=== PATIENT | male | born 1925 | race Caucasian/White ===

== ENCOUNTER 2017-02-24 09:39 | Emergency (ER) | payer OTHER ==
[~2017-02-24] VITALS: Ht 190.5 cm; Wt 80.0 kg
[~2017-02-24 09:39] MED LIST: APIX1TAB PO; CHOL100010 PO; CYAN10004 PO; FOLI1TAB7 PO; HYT1 PO; KFL500 PO; MISCCAP3 PO; PRS5 PO
[2017-02-24 09:41] VITALS: TEMP 36.4; Ht 190.5 cm; Wt 80.0 kg
[2017-02-24] MEDS ORDERED: CHOL1TAB53 PO (10:13)
[2017-02-24 11:23] LABS: BASO % 0.3 %; BASO ABS # 0.02 K/uL (0-0.2); COMPLETE YES; EOS % 1.6 %; HEMATOCRIT 44.6 % (42-52); IG% 0.2 %; LYMPH ABS # 1.86 K/uL (1.2-3.4); MEAN CELL VOLUME 96.1 fL (80-100); MEAN CORPUSCULAR HGB CONC 32.3 g/dl (32-36); MEAN PLATELET VOLUME 11.9 fL (7.4-10.4); MONO % 7.3 %; NEUT % 60.6 %; PLATELET COUNT 178 K/uL (130-400); RED BLOOD COUNT 4.64 M/uL (4.7-6.1)
[2017-02-24 11:41] LABS: BUN/CREATININE RATIO 10.7 (10-20); CALCIUM 9.1 mg/dl (8.5-10.1); CREATININE 1.5 mg/dl (0.60-1.40); POTASSIUM 4.2 mmol/L (3.5-5.1)
--- NOTE | 2017-02-24 12:02 | DIAGNOSTIC IMAGING REPORT ---
LEFT RIBS UNILATERAL WITH PA CHEST CLINICAL HISTORY: Left rib pain. Fall. COMPARISON STUDY: Chest and right rib series 06/15/2016. FINDINGS: Old, healed left lower rib fractures. No acute rib fractures. No pneumothorax. The heart is mildly enlarged. Left-sided single lead pacemaker. Mild interstitial thickening at left lung base. IMPRESSION: Old, healed left lower rib fractures. No acute rib fractures. Stable mild cardiomegaly. Electronically signed by: Daniel Rey M.D. 02/24/2017 12:00 PM Dictated Date/Time: 02/24/2017 11:57 AM
[2017-02-24] MEDS ORDERED: OXYC1TAB3 PO (13:00)
[2017-02-24] MEDS ORDERED: OPTIRAY 320 IV PRN (13:45)
[2017-02-24] MEDS ORDERED: SODIUM CHLORIDE 0.9% 250ML 250 ML IV STA (14:19)
--- NOTE | 2017-02-24 14:29 | DIAGNOSTIC IMAGING REPORT ---
ABDOMEN AND PELVIS CT WITH IV CONTRAST CT DOSE: 356.90 mGy.cm HISTORY: Left flank pain. Fall. eval for renal injury TECHNIQUE: Multiaxial CT images of the abdomen and pelvis were performed following the use of intravenous contrast. COMPARISON STUDY: Abdomen and pelvis CT 08/21/2016. FINDINGS: Mild bibasilar interstitial thickening. The heart remains enlarged. Pacemaker wires are noted. No pneumoperitoneum. No pneumatosis. A right total hip arthroplasty and left femoral neck pin is noted. No change in the old, healed left-sided rib fractures. No acute fractures identified. Motion artifact resulting in suboptimal evaluation. An 11 mm enhancing lesion within the right hepatic dome. This is incompletely characterized on this study but may represent a flash filling hemangioma. The visualized gallbladder, spleen, adrenal glands, and pancreas are unremarkable. A few subcentimeter bilateral renal hypodense lesions. These are too small to characterize. No hydronephrosis. No retroperitoneal lymphadenopathy. Left flank subcutaneous edema. Moderate to severe calcified plaque within the abdominal aorta. Bladder is not well evaluated due to the metallic artifact. However, there is no significant bladder wall thickening. The prostate gland is mildly enlarged. Mildly distended gas-filled loops of large and small bowel. This favors an ileus. No evidence for bowel obstruction. No bowel wall thickening. IMPRESSION: 1. Motion artifact. However, no definite acute injury within the abdomen or pelvis. 2. Old, healed left-sided rib fractures. 3. Mildly distended gas-filled loops of large and small bowel. This likely represents an ileus. No evidence for bowel obstruction. 4. Additional findings as described above. Electronically signed by: Daniel Rey M.D. 02/24/2017 2:27 PM Dictated Date/Time: 02/24/2017 2:18 PM
[2017-02-24 15:19] VITALS: BP 181/100; PULSE 60; O2SAT 100
--- NOTE | 2017-02-24 16:50 | EMERGENCY ROOM VISIT NOTE ---
History Report prepared by Kassidy: Marissa Mccarthy Under the Supervision of: Dr. Jose Sams M.D. First contact with patient: 10:30 Chief Complaint: FALL Stated Complaint: FELL,POSSIBLE BROKEN RIBS History of Present Illness The patient is a 89 year old male who presents to the Emergency Room with complaints of persistent left rib pain starting 2 days ago. The patient was in the kitchen when he lost his balance and fell and landed on his left side. He has a sharp pain in his left side which worsens with breathing. He denies any back pain, hip pain, weakness to his legs, SOB, abdominal pain, LOC, or dizziness. He denies any injury to his head or neck. Source of History: patient Onset: 2 days ago Position: other (left rib) Quality: sharp Timing: other (persistent) Modifying Factors (Worsening): breathing Associated Symptoms: No LOC, No SOB, No abdominal pain, No back pain, No headache, No neck pain, No weakness Note: Pt denies hip pain, dizziness. Review of Systems See HPI for pertinent positives & negatives. A total of 10 systems reviewed and were otherwise negative. Past Medical & Surgical Medical Problems: (1) A-fib (2) Anemia (3) Bradycardia (4) Hypertensive urgency (5) Pacemaker (6) Rectal bleeding (7) Urinary tract infection (8) Urinary tract infection Family History Noncontributory secondary to age. Social History Smoking Status: Never Smoker Alcohol Use: none Marital Status: Housing Status: lives alone Occupation Status: retired Current/Historical Medications Scheduled Apixaban (Eliquis), 2.5 MG PO BID Cholecalciferol (D 1000), 1,000 UNIT PO SOMETIMES Cyanocobalamin (Vitamin B-12 1000 Mcg), 1,000 MCG PO DAILY Folic Acid (Folvite), 1 MG PO DAILY Misc Natural Products (Pumpkin Seed Oil), 1 TABS PO DAILY Scheduled PRN Oxycodone Ir (Roxicodone Ir), 2.5 MG PO Q4H PRN for Pain Allergies Coded Allergies: No Known Allergies (Verified , 08/20/16) Physical Exam Vital Signs Date Time Temp Pulse Resp B/P Pulse Ox O2 Delivery O2 Flow Rate FiO2 02/24/17 15:19 60 18 181/100 100 Room Air 02/24/17 13:19 61 18 186/95 99 Room Air 02/24/17 12:14 61 18 176/82 97 Room Air 02/24/17 11:20 60 190/90 99 Room Air 02/24/17 10:18 192/91 02/24/17 09:41 36.4 63 18 210/95 100 Room Air Physical Exam Constitutional: Vital signs reviewed. Eyes: Pupils are equal round reactive to light. Conjunctiva are noninjected. ENT: Pharynx is clear without erythema or exudate. Mucous membranes are moist. Neck supple without meningeal signs. No midline tenderness to the cervical spine. Respiratory: Clear to auscultation bilaterally. Breath sounds are equal bilaterally. Cardiovascular: Regular rate and rhythm. No rubs or gallops. GI: Soft, nondistended and nontender. Bowel sounds are present. Musculoskeletal: Tenderness over the left lower ribs in the mid axillary line without crepitus or flail segment. No tenderness to the hip with full ROM of both joints. Integumentary: No cyanosis. Neurological: The patient is awake and alert. No focal deficits. Psychiatric: Normal affect. Medical Decision & Procedures ER Provider Diagnostic Interpretation: X-ray results as stated below per interpretation by me and the radiologist. Radiology results as stated below per my review and the radiologist's interpretation: LEFT RIBS UNILATERAL WITH PA CHEST CLINICAL HISTORY: Left rib pain. Fall. COMPARISON STUDY: Chest and right rib series 06/15/2016. FINDINGS: Old, healed left lower rib fractures. No acute rib fractures. No pneumothorax. The heart is mildly enlarged. Left-sided single lead pacemaker. Mild interstitial thickening at left lung base. IMPRESSION: Old, healed left lower rib fractures. No acute rib fractures. Stable mild cardiomegaly. Electronically signed by: Daniel Rey M.D. 02/24/2017 12:00 PM Dictated Date/Time: 02/24/2017 11:57 AM ABDOMEN AND PELVIS CT WITH IV CONTRAST CT DOSE: 356.90 mGy.cm HISTORY: Left flank pain. Fall. eval for renal injury TECHNIQUE: Multiaxial CT images of the abdomen and pelvis were performed following the use of intravenous contrast. COMPARISON STUDY: Abdomen and pelvis CT 08/21/2016. FINDINGS: Mild bibasilar interstitial thickening. The heart remains enlarged. Pacemaker wires are noted. No pneumoperitoneum. No pneumatosis. A right total hip arthroplasty and left femoral neck pin is noted. No change in the old, healed left-sided rib fractures. No acute fractures identified. Motion artifact resulting in suboptimal evaluation. An 11 mm enhancing lesion within the right hepatic dome. This is incompletely characterized on this study but may represent a flash filling hemangioma. The visualized gallbladder, spleen, adrenal glands, and pancreas are unremarkable. A few subcentimeter bilateral renal hypodense lesions. These are too small to characterize. No hydronephrosis. No retroperitoneal lymphadenopathy. Left flank subcutaneous edema. Moderate to severe calcified plaque within the abdominal aorta. Bladder is not well evaluated due to the metallic artifact. However, there is no significant bladder wall thickening. The prostate gland is mildly enlarged. Mildly distended gas-filled loops of large and small bowel. This favors an ileus. No evidence for bowel obstruction. No bowel wall thickening. IMPRESSION: 1. Motion artifact. However, no definite acute injury within the abdomen or pelvis. 2. Old, healed left-sided rib fractures. 3. Mildly distended gas-filled loops of large and small bowel. This likely represents an ileus. No evidence for bowel obstruction. 4. Additional findings as described above. Electronically signed by: Daniel Rey M.D. 02/24/2017 2:27 PM Dictated Date/Time: 02/24/2017 2:18 PM Laboratory Results 02/24/17 11:05 Red Blood Count 4.64, Mean Corpuscular Volume 96.1, Mean Corpuscular Hemoglobin 31.0, Mean Corpuscular Hemoglobin Concent 32.3, Mean Platelet Volume 11.9, Neutrophils (%) (Auto) 60.6, Lymphocytes (%) (Auto) 30.0, Monocytes (%) (Auto) 7.3, Eosinophils (%) (Auto) 1.6, Basophils (%) (Auto) 0.3, Neutrophils # (Auto) 3.76, Lymphocytes # (Auto) 1.86, Monocytes # (Auto) 0.45, Eosinophils # (Auto) 0.10, Basophils # (Auto) 0.02 02/24/17 11:05 Test 02/24/17 11:05 02/24/17 11:12 White Blood Count 6.20 K/uL (4.8-10.8) Red Blood Count 4.64 M/uL (4.7-6.1) Hemoglobin 14.4 g/dL (14.0-18.0) Hematocrit 44.6 % (42-52) Mean Corpuscular Volume 96.1 fL (80-100) Mean Corpuscular Hemoglobin 31.0 pg (25-34) Mean Corpuscular Hemoglobin Concent 32.3 g/dl (32-36) Platelet Count 178 K/uL (130-400) Mean Platelet Volume 11.9 fL (7.4-10.4) Neutrophils (%) (Auto) 60.6 % Lymphocytes (%) (Auto) 30.0 % Monocytes (%) (Auto) 7.3 % Eosinophils (%) (Auto) 1.6 % Basophils (%) (Auto) 0.3 % Neutrophils # (Auto) 3.76 K/uL (1.4-6.5) Lymphocytes # (Auto) 1.86 K/uL (1.2-3.4) Monocytes # (Auto) 0.45 K/uL (0.11-0.59) Eosinophils # (Auto) 0.10 K/uL (0-0.5) Basophils # (Auto) 0.02 K/uL (0-0.2) RDW Standard Deviation 51.2 fL (36.4-46.3) RDW Coefficient of Variation 14.6 % (11.5-14.5) Immature Granulocyte % (Auto) 0.2 % Immature Granulocyte # (Auto) 0.01 K/uL (0.00-0.02) Anion Gap 5.0 mmol/L (3-11) Est Creatinine Clear Calc Drug Dose 37.8 ml/min Estimated GFR () 47.2 Estimated GFR (Non- 40.7 BUN/Creatinine Ratio 10.7 (10-20) Calcium Level 9.1 mg/dl (8.5-10.1) Bedside Troponin I 0.010 ng/ml (0-0.045) Laboratory results as reviewed by me. Medications Administered Medications (Trade) Dose Ordered Sig/Vanessa Route Start Time Stop Time Status Last Admin Dose Admin Sodium Chloride (Nss 250ml) 250 ml @ 999 mls/hr Q16M STAT IV 02/24/17 14:19 02/24/17 14:34 DC 02/24/17 14:19 999 MLS/HR ECG Indication: other (fall) Rate (beats per minute): 62 Rhythm: other (ventricular paced rhythm) Findings: PVC, other (QRS 170 ms) ED Course 1032: The patient was evaluated in room C9. A complete history and physical exam was performed. 1255: I reevaluated the patient. He is resting comfortably. I discussed with him the test results and the need to follow up with his PCP. I discussed the precautions regarding his pain medications. He verbalized understanding and agreement. He was discharged home. 1304: The case monitor has talked to the patient and determined that he has an appointment tomorrow to see his PCP. 1327: The patient has mentioned to the nurse that he has had some hematuria recently. He is on eliquis. He will be going for CT scan. 1419: NSS 250 ml @ 999 mls/hr IV. 1505: I reevaluated the patient. He is resting comfortably. He is not able to produce a urine sample. He denies any dysuria and would like to go home. He will follow up with his PCP tomorrow. I told him to make sure he checks his urine tomorrow. He verbalized understanding and agreement. He will be discharged home. Medical Decision This is an 89-year-old male who presents with rib pain after a fall. Differential diagnosis includes rib fracture, contusion, pneumothorax, pleural effusion, visceral injury. I did perform a limited focused review of portions of the patient's old chart on the electronic medical record. The patient was evaluated in June 2016 and diagnosed with multiple right sided rib fractures after a fall. I did evaluate the patient as noted above. The patient presents after falling 2 days ago. He states he lost his balance and hurt his ribs on the left side. He has reproducible tenderness over the left lower ribs on palpation. IV access was established. I did order and personally review the patient's 12- lead EKG and chest rib x-rays as described above. There is no evidence of pneumothorax. Old fractures are noted but no acute fractures. I did order and review the patient's blood work as noted in the electronic medical record. He is not anemic. I did discuss the test results with the patient. He was advised follow up with his doctor and says he appointment tomorrow. He will have his blood pressure rechecked at that time. He was given a prescription for OxyIR and given precautions regarding this medication. When the patient was being discharged the patient noted to the nurse that he has noticed some blood in his urine. I therefore reassessed him and recommended further evaluation given he is on a blood thinner. I did order a CT of the abdomen and pelvis. I did review the images myself as well as the radiology report as described above. There was no evidence of visceral injury. The patient was unable to give us a urine sample and so he preferred to go home. He states that he will give a urine sample to his doctor tomorrow. He was therefore discharged and given return instructions as outlined below. [facility] Drug Monitoring Program Search Results: patient reviewed within database Drug Monitoring Findings: No matching patients Impression Primary Impression: Multiple fractures of ribs of left side Additional Impressions: Elevated blood pressure reading Hematuria Anticoagulated Scribe Attestation The scribe's documentation has been prepared under my direct and personally reviewed by me in its entirety. I confirm that the note above accurately reflects all work, treatment, procedures, and medical decision making performed by me. Departure Information Dispostion Home / Self-Care Prescriptions Oxycodone Ir (Roxicodone Ir) 5 Mg Tab 2.5 MG PO Q4H Y for Pain, #15 TAB Prov: Jose Sams M.D. 02/24/17 Referrals Danii Dick PA-C (PCP) Forms HOME CARE DOCUMENTATION FORM, IMPORTANT VISIT INFORMATION Patient Instructions ED Contusion Vs Minor Fx Rib, My [facility] Additional Instructions You have been examined and treated today on an emergency basis only. This is not a substitute for, or an effort to provide, complete comprehensive medical care. It is impossible to recognize and treat all injuries or illnesses in a single emergency department visit. It is therefore important that you follow up closely with your physician tomorrow per your appointment. Have him check your urine. Return for worsening symptoms or if you develop fever, vomiting, difficulty breathing, abdominal pain or any other concerning symptoms. Problem Qualifiers Primary Impression: Multiple fractures of ribs of left side Encounter type: initial encounter Fracture type: closed Qualified Codes: S22.42XA - Multiple fractures of ribs, left side, initial encounter for closed fracture
== END 2017-02-24 15:19 | disposition home or self-care (01) ==
LOC: C.EDB 09:40 → C.EDC 15:19
DX: S22.42XD Multiple fractures of ribs, left side, subsequent encounter for fracture with routine healing (principal); W19.XXXA Unspecified fall, initial encounter; Y92.010 Kitchen of single-family (private) house as the place of occurrence of the external cause; R31.9 Hematuria, unspecified; Z79.01 Long term (current) use of anticoagulants; R03.0 Elevated blood-pressure reading, without diagnosis of hypertension; I48.91 Unspecified atrial fibrillation; D64.9 Anemia, unspecified; Z95.0 Presence of cardiac pacemaker; Z79.899 Other long term (current) drug therapy

== ENCOUNTER 2017-06-01 09:15 | Emergency (ER) | payer OTHER ==
[~2017-06-01] VITALS: Ht 188 cm; Wt 85.0 kg
[~2017-06-01 09:15] MED LIST changes: -CHOL100010 PO; +CHOL1TAB53 PO; -HYT1 PO; -KFL500 PO; +OXYC1TAB3 PO; -PRS5 PO
[2017-06-01] MEDS ORDERED: SODIUM CHLORIDE 0.9% 1000ML 1,000 ML IV STA (09:28)
[2017-06-01] MEDS ORDERED: FENTANYL CITRATE INJ 50 MCG/1 ML 2 ML VIAL IV STA ×3 (09:28→12:33)
[2017-06-01] MEDS ORDERED: ONDANSETRON INJ 2 MG/ML 2 ML VIAL IV STA (09:28)
--- NOTE | 2017-06-01 09:33 | EMERGENCY ROOM VISIT NOTE ---
History Report prepared by Kassidy: Kady Stacy Under the Supervision of: Dr. Sharon Salinas M.D. First contact with patient: 09:18 Stated Complaint: LETHARGIC/FALL/NECK AND BACK PAIN History of Present Illness The patient is an 89 year old male who presents to the Emergency Room with complaints of a sudden fall that occurred prior to arrival. Per EMS, the patient states that he fell one hour prior to their arrival. EMS reports that the patient fell down three hard wooden steps. EMS notes that the patient is complaining of lower back pain and neck pain. EMS states that the patient has been holding his head c/o pain. The history is limited due to patient's hearing. Source of History: patient, EMS History Limited By: other (hearing) Onset: prior to arrival Position: other (global) Quality: other (fall) Timing: other (sudden) Associated Symptoms: + neck pain, + back pain Review of Systems The history and ROS are limited due to the patient's hearing. Past Medical & Surgical Medical Problems: (1) A-fib (2) Anemia (3) Bradycardia (4) Hypertensive urgency (5) Pacemaker (6) Rectal bleeding (7) Urinary tract infection (8) Urinary tract infection Family History Hypertension Social History Smoking Status: Never Smoker Alcohol Use: none Marital Status: Housing Status: lives alone Occupation Status: retired Current/Historical Medications Scheduled Apixaban (Eliquis), 2.5 MG PO BID Cyanocobalamin (Vitamin B-12 1000 Mcg), 1,000 MCG PO DAILY Folic Acid (Folvite), 1 MG PO DAILY Gabapentin (Gabapentin), 600 MG PO HS Tamsulosin HCl (Tamsulosin HCl), 0.4 MG PO DAILY Allergies Coded Allergies: No Known Allergies (Verified , 06/01/17) Physical Exam Vital Signs Date Time Temp Pulse Resp B/P (MAP) Pulse Ox O2 Delivery O2 Flow Rate FiO2 06/01/17 11:23 62 18 138/70 93 Room Air 06/01/17 10:50 61 18 123/62 93 Room Air 06/01/17 10:14 64 06/01/17 09:36 75 18 150/97 94 Room Air Physical Exam Vital signs reviewed. General: Elderly. Kyphotic. Well-appearing , in no significant distress. Boarded and collared. HEENT: Small contusion over let forehead.No scleral icterus, PERRLA, neck supple. Distal cervical spine tenderness, questionable mild crepitus. Cardiovascular: Regular rate and rhythm, no extra sounds. Pulmonary: Clear to auscultation bilaterally, normal work of breathing. Abdomen: Soft, nontender, nondistended, positive bowel sounds. Musculoskeletal: Cervical spine is tender distally. Proximal thoracic tenderness to palpation. Small abrasion to the left upper back over a keratosis. Lumbar spine palpated, nontender, no step-off or deformity appreciated. L posterior ribs tender to palpation Neurologic: Patient awake alert and oriented x 3, full strength in all 4 extremities. Skin: Warm, dry, no rash. No significant abrasions/laceration. Medical Decision & Procedures ER Provider Diagnostic Interpretation: Radiology results as stated below per my review and radiologist interpretation: THORACIC SPINE WITHOUT CLINICAL HISTORY: Fall. Back pain. COMPARISON STUDY: Chest CT March 23, 2016. FINDINGS: A small left pneumothorax and small left pneumothorax and airspace opacity within the left lung are better depicted on the chest CT. There is soft tissue gas within the paraspinal musculature. There are fractures of the posterior left eighth through 12th rib. Several these fractures are markedly displaced and comminuted. There is an acute nondisplaced fracture of the left transverse process of T9. There are displaced, comminuted fractures through the left transverse processes of T10, T11, T12 and L1. These fractures are markedly displaced. There is an associated paravertebral hematoma. Extensive anterior osteophytosis of the thoracic spine is present. There is apparent increased attenuation within the posterior aspect of the canal of the thoracic spine. IMPRESSION: 1. Acute comminuted, markedly displaced fractures of the left transverse processes of T10, T11, T12 and L1 and a nondisplaced acute fracture of the left transverse process of T9. 2. Apparent increased attenuation within the posterior aspect of the thoracic canal. While this could be artifactual, an intracanalicular hematoma could have this imaging appearance. 3. Left posterior eighth through 12th rib fractures, as described above. 4. Small left pneumothorax and left hemothorax, better depicted on the chest CT. Electronically signed by: Demetrio Duron M.D. 06/01/2017 12:00 PM Dictated Date/Time: 06/01/2017 11:[address] OF THE HEAD WITHOUT CONTRAST CLINICAL HISTORY: Fall. Closed head injury. COMPARISON STUDY: Head CT November 09, 2014. TECHNIQUE: Helical axial images of the head were obtained without IV contrast. Automated exposure control was utilized for the study. A dose lowering technique was utilized adhering to the principles of ALARA. FINDINGS: No acute intracranial hemorrhage, midline shift or mass effect is present. Ventricular system is stable. The basilar cisterns are patent. There are no extra-axial collections. White matter hypodensities suggest small vessel disease. No calvarial fracture is identified. Mild mucosal thickening and tiny sphenoid sinus air-fluid level is noted. Fluid is low attenuation. IMPRESSION: 1. No acute intracranial findings. 2. No calvarial fracture. Electronically signed by: Demetrio Duron M.D. 06/01/2017 11:16 AM Dictated Date/Time: 06/01/2017 11:[address] OF THE CERVICAL SPINE WITHOUT CONTRAST CLINICAL HISTORY: Neck pain following fall. COMPARISON STUDY: No previous studies for comparison. TECHNIQUE: Helical axial images of the cervical spine were obtained without IV contrast. Sagittal and coronal reconstructions were viewed. A dose lowering technique was utilized adhering to the principles of ALARA. FINDINGS: The craniocervical junction is intact. There is extensive anterior osteophytosis of the cervical spine. There is moderate multilevel degenerative disc disease and severe facet arthrosis. There is an acute fracture through the anterior superior aspect of the C5 vertebral body which extends through an anterior osteophyte and the superior endplate. There are acute displaced fractures of the spinous processes of C5 and C6 as well as well as a horizontal acute fracture through the superior aspect of the C7 vertebral body. There is slight widening of the C5-C6 interspinous distance. Soft tissue gas within the lower paravertebral soft tissues is noted. This extends from the chest. A left pneumothorax better depicted on the chest CT. Was made of apparent increased attenuation within the posterior aspect of the cervical canal. This could be artifactual. IMPRESSION: 1. Multiple acute cervical spine fractures, including a fracture through the anterior superior endplate of C5, displaced fractures of the spinous processes of C5 and C6 and a horizontal fracture through the superior aspect of the C7 vertebral body. Slight widening of the C5-C6 interspinous distance. Overall, the findings suggest unstable cervical spine fractures. Discussed with Dr. Salinas time of dictation. 2. Increased attenuation within the posterior aspect of the cervical canal. This may be artifactual however an intracanalicular hematoma could appear similar. Electronically signed by: Demetrio Duron M.D. 06/01/2017 11:38 AM Dictated Date/Time: 06/01/2017 11:[address] OF THE CHEST WITHOUT IV CONTRAST CLINICAL HISTORY: Trauma. COMPARISON STUDY: Chest CT March 23, 2006. CT DOSE: 1548.17 mGy.cm TECHNIQUE: Axial images of the chest were obtained without IV contrast. Images were reviewed in the axial, sagittal, and coronal planes. IV contrast was not administered for this examination. A dose lowering technique was utilized adhering to the principles of ALARA. FINDINGS: A left subclavian pacer is in place. There is moderate cardiomegaly. There is no pericardial effusion. A small left pneumothorax is present. Moderate left lung airspace opacity is present. There is a small left pneumothorax. There is an acute minimally displaced fracture of the posterior left eighth rib. There are comminuted, displaced fractures of the posterior left ninth, 10th, 11th and 12th ribs. There is an acute nondisplaced fracture of the left transverse process of T9 with displaced fractures of the left transverse processes of T10, T11, T12 and L1. Fractures are markedly comminuted and displaced. There is an adjacent paravertebral hematoma which extends into the posterior mediastinum. The aorta is suboptimally assessed on this exam but grossly unremarkable. Soft tissue gas is present. IMPRESSION: 1. Small left pneumothorax. Acute fractures of the left eighth through 12th ribs. Several these fractures are comminuted and markedly displaced. Adjacent soft tissue gas. Small left hemothorax. 2. Groundglass opacities within the left lung which could reflect contusion, atelectasis or airspace disease. 3. Markedly displaced, comminuted fractures of the left transverse processes of T10, T11, T12 and L1 with a nondisplaced fracture of the left transverse process of T9. Associated hematoma involving the paraspinal musculature. Hemorrhage extends into the adjacent mediastinum. Suboptimal evaluation of the aorta on this unenhanced exam but no definite evidence for aortic injury. 4. Apparent increased attenuation within the posterior aspect of the thoracic canal. While this could be artifactual, intracanalicular hematoma could appear similar. Electronically signed by: Demetrio Duron M.D. 06/01/2017 11:54 AM Dictated Date/Time: 06/01/2017 11:38 AM CHEST ONE VIEW PORTABLE CLINICAL HISTORY: Fall. COMPARISON STUDY: Chest CT June 01, 2017 11:02 AM. FINDINGS: There has been interval placement of a left-sided chest tube. There is a probable small left pneumothorax. Left lower lung airspace opacity is present. A subclavian pacemaker is in place. Moderate cardiomegaly is noted. Posterior left-sided rib fractures are better depicted on the chest CT. IMPRESSION: 1. Interval placement of a left chest tube. Small residual left pneumothorax. 2. Hazy left basilar opacity. Electronically signed by: Demetrio Duron M.D. 06/01/2017 1:14 PM Dictated Date/Time: 06/01/2017 1:11 PM Laboratory Results 06/01/17 09:41 Red Blood Count 4.29, Mean Corpuscular Volume 96.3, Mean Corpuscular Hemoglobin 31.0, Mean Corpuscular Hemoglobin Concent 32.2, Mean Platelet Volume 11.3, Neutrophils (%) (Auto) 84.7, Lymphocytes (%) (Auto) 8.4, Monocytes (%) (Auto) 6.3, Eosinophils (%) (Auto) 0.2, Basophils (%) (Auto) 0.1, Neutrophils # (Auto) 13.79, Lymphocytes # (Auto) 1.37, Monocytes # (Auto) 1.02, Eosinophils # (Auto) 0.04, Basophils # (Auto) 0.02 06/01/17 09:41 Test 06/01/17 09:41 06/01/17 09:58 06/01/17 10:01 White Blood Count 16.29 K/uL (4.8-10.8) Red Blood Count 4.29 M/uL (4.7-6.1) Hemoglobin 13.3 g/dL (14.0-18.0) Hematocrit 41.3 % (42-52) Mean Corpuscular Volume 96.3 fL (80-100) Mean Corpuscular Hemoglobin 31.0 pg (25-34) Mean Corpuscular Hemoglobin Concent 32.2 g/dl (32-36) Platelet Count 167 K/uL (130-400) Mean Platelet Volume 11.3 fL (7.4-10.4) Neutrophils (%) (Auto) 84.7 % Lymphocytes (%) (Auto) 8.4 % Monocytes (%) (Auto) 6.3 % Eosinophils (%) (Auto) 0.2 % Basophils (%) (Auto) 0.1 % Neutrophils # (Auto) 13.79 K/uL (1.4-6.5) Lymphocytes # (Auto) 1.37 K/uL (1.2-3.4) Monocytes # (Auto) 1.02 K/uL (0.11-0.59) Eosinophils # (Auto) 0.04 K/uL (0-0.5) Basophils # (Auto) 0.02 K/uL (0-0.2) RDW Standard Deviation 52.2 fL (36.4-46.3) RDW Coefficient of Variation 14.8 % (11.5-14.5) Immature Granulocyte % (Auto) 0.3 % Immature Granulocyte # (Auto) 0.05 K/uL (0.00-0.02) Est Creatinine Clear Calc Drug Dose 34.3 ml/min Estimated GFR () 40.5 Estimated GFR (Non- 35.0 BUN/Creatinine Ratio 11.2 (10-20) Calcium Level 9.2 mg/dl (8.5-10.1) Total Bilirubin 0.7 mg/dl (0.2-1) Direct Bilirubin 0.2 mg/dl (0-0.2) Aspartate Amino Transf (AST/SGOT) 78 U/L (15-37) Alanine Aminotransferase (ALT/SGPT) 40 U/L (12-78) Alkaline Phosphatase 113 U/L (45-117) Total Creatine Kinase 3184 U/L (39-308) Creatine Kinase MB 87.1 ng/ml (0.5-3.6) Creatine Kinase MB Ratio 2.7 (0-3.0) Total Protein 7.2 gm/dl (6.4-8.2) Albumin 3.4 gm/dl (3.4-5.0) Bedside Troponin I < 0.030 ng/ml (0-0.045) Bedside Hemoglobin 13.9 g/dl (14.0-18.0) Bedside Hematocrit 41 % (42-52) Bedside Sodium 142 mEq/L (135-144) Bedside Potassium 3.9 mEq/L (3.3-5.0) Bedside Chloride 102 mEq/L (101-112) Bedside Total CO2 26 mEq/l (24-31) Anion Gap 19.0 mmol/L (16-25) Bedside Blood Urea Nitrogen 22 mg/dl (7-18) Bedside Creatinine 1.7 mg/dl (0.6-1.3) Bedside Glucose (other) 172 mg/dl (70-99) Bedside Ionized Calcium (Kimberly) 1.23 mmol/l (1.12-1.32) Laboratory results per my review. Medications Administered Medications (Trade) Dose Ordered Sig/Vanessa Route Start Time Stop Time Status Last Admin Dose Admin Fentanyl Citrate (Fentanyl Inj) 25 mcg NOW STAT IV 06/01/17 09:28 06/01/17 09:32 DC 06/01/17 09:54 25 MCG Ondansetron HCl (Zofran Inj) 4 mg NOW STAT IV 06/01/17 09:28 06/01/17 09:32 DC 06/01/17 09:55 4 MG Sodium Chloride 1,000 ml @ 125 mls/hr Q8H STAT IV 06/01/17 09:28 06/01/17 17:27 06/01/17 09:55 125 MLS/HR Fentanyl Citrate (Fentanyl Inj) 25 mcg NOW STAT IV 06/01/17 10:41 06/01/17 10:43 DC 06/01/17 10:49 25 MCG Prothrombin Complex Concent (Human) 4000 unit/ Syringe 160 ml @ 10 mls/min 1215 ONCE IV 06/01/17 12:15 06/01/17 12:30 DC 06/01/17 12:21 10 MLS/MIN Fentanyl Citrate (Fentanyl Inj) 50 mcg NOW STAT IV 06/01/17 12:33 06/01/17 12:34 DC 06/01/17 12:39 50 MCG Procedure Tube Thoracostomy Indication: Pneumothorax Written consent was obtained after the risks and benefits were explained, including but not limited to cardiac/liver/lung injury, bleeding, scarring, infection, pain, and bone/joint/nerve damage. At this time, the risks of the procedure are less than the risks of NOT performing the procedure. A time out was taken and the correct patient and site identified. The patient was prepped and draped in the standard surgical fashion. 1% lidocaine without epinephrine was infused over the left fifth intercostal space into the subcutaneous tissue. A 3 cm incision was made transversely in the mid axillary line over the fifth intercostal rib. Blunt dissection was done with a Rayne clamp to the area of the intercostal muscles; 1% lidocaine again was used for anesthesia in intercostal muscle and subpleural space. Blunt dissection was then done with the Rayne clamps into the pleural cavity over the rib. Air and a small amount of blood was noted upon entering the pleural cavity. The pleural cavity was digitally inspected to confirm that the pleural cavity had been entered. A 32 Lao thoracostomy tube was inserted in the superior/posterior portion of the pleural space. 1-0 silk suture was used to approximate the skin above the thoracostomy tube and then used to secure the thoracostomy tube. An occlusive dressing was then placed and the thoracostomy tube was hooked to the Pleur-evac suction. The patient tolerated the procedure well without complications. A postoperative x-ray was then performed which showed the thoracostomy tube in the correct position. ECG Indication: other (trauma) Rate (beats per minute): 66 Rhythm: other (ventricularly paced) Findings: PVC, other (prolonged QTC at 530) ED Course 09: Past medical records reviewed. The patient was evaluated in room B9. A complete history and physical examination was performed. 0928: Ordered Sodium Chloride 1000 ml @ 125 mls/hr IV, Zofran Inj 4 mg IV, Fentanyl Inj 25 mcg IV. 1041: Ordered Fentanyl Inj 25 mcg IV. 1125: I spoke to Dr. Duron, Radiology at this time regarding the patients findings. 1128: I reevaluated the patient and he is resting. I discussed the exam findings with him and attempted to contact the patients family. The patient will be transferred for further evaluation and treatment. 1139: I discussed the patients case with Dr. Mensah, [facility]. He accepted the patient for further evaluation and treatment. 1150: I discussed the patients case with Dr. Mensah, [facility]. 1151: I discussed the patients case with Dr. Bates, [facility]. She states that the patient should be given PCC 4000. 1155: I placed a chest tube in the patient at this time. See procedure note for further detail. 1215: Ordered Prothrombin Complex Concent (Human) 4000 unit/Syringe 160 ml @ 10 mls/min Protocol IV. 1233: Ordered Fentanyl Inj 50 mcg IV. 1236: I discussed the patients x-ray with Dr. Duron, Radiology. He read the chest tube above the diaphragm and the pneumothorax has improved. Medical Decision Trauma: Intracranial injury, cervical spine injury, intrathoracic injury, intra- abdominal injury, musculoskeletal injury. This patient was evaluated and appeared to be in no significant distress. IV access was obtained and laboratory work was drawn. The patient was evaluated and appeared to be in no significant distress. Patient complained of significant pain with any movement. He was taken off of the backboard however the cervical collar remained in place. He had primarily tenderness along the distal cervical and proximal thoracic spines. He has an abrasion noted over the posterior left back. CT scan of the head neck and chest was performed, all noncontrast as the patient's creatinine is 1.7. There are multiple cervical and thoracic spine fractures, left-sided rib fractures, hemo-and pneumothorax noted. There is a possibility of a hyper attenuation along the cervical cord that may represent a small hematoma. I did speak with Dr. Bills of hematology who has recommended PCC, 4000 units. A chest tube was placed in the left side. Placement is verified by x-ray. He was placed on a pneumovac. Patient's pain was relatively well controlled with IV fentanyl when necessary. I did make several attempts to contact the patient's family. I left a message on his nephew's cell phone. The patient is aware of the plan. He will be transferred by [facility] to [facility]. He was accepted by Dr. Mensah of the trauma service. Head Trauma GCS Score: 15 Medication Reconcilliation Current Medication List: was personally reviewed by me Blood Pressure Screening Patient's blood pressure: Normal blood pressure Consults Time Called: 1133 Consulting Physician: Dr Mensah, [facility] Returned Call: 1130 I discussed the patients case with Dr. Mensah, [facility]. He accepted the patient for further evaluation and treatment. Additional Consults: Time Called: 1138 Consulted Physician: Dr. Bates, [facility] Returned Call: 1150 Additional Comments: I discussed the patients case with Dr. Bates, [facility]. She states that the patient should be given PCC 4000. Time Called: 1234 Consulted Physician: Dr. Duron, Radiology Returned Call: 1236 Additional Comments: I discussed the patients x-ray with Dr. Duron, Radiology. He read the chest tube above the diaphragm and the pneumothorax has improved. Impression Primary Impression: Hemothorax Additional Impressions: Pneumothorax Multiple fractures of cervical spine Multiple fractures of thoracic spine Multiple fractures of ribs of left side Fall Anticoagulated Critical Care I have personally spent greater than 90 minutes of critical care time in the direct management of this patient. This includes bedside care, interpretation of diagnostic studies, and testing, discussion with consultants, patient, and family members, and other required patient management activities. This 90 minutes is in excess of all separately billable procedures. Scribe Attestation The scribe's documentation has been prepared under my direction and personally reviewed by me in its entirety. I confirm that the note above accurately reflects all work, treatment, procedures, and medical decision making performed by me. Departure Information Dispostion Transfer Acute Care Facility Referrals Danii Dick PA-C (PCP) Problem Qualifiers Additional Impressions: Pneumothorax Pneumothorax type: traumatic Encounter type: initial encounter Qualified Codes: S27.0XXA - Traumatic pneumothorax, initial encounter Multiple fractures of cervical spine Encounter type: initial encounter Qualified Codes: S12.9XXA - Fracture of neck, unspecified, initial encounter Multiple fractures of thoracic spine Encounter type: initial encounter Fracture type: closed Qualified Codes: S22.009A - Unspecified fracture of unspecified thoracic vertebra, initial encounter for closed fracture Multiple fractures of ribs of left side Encounter type: initial encounter Fracture type: closed Qualified Codes: S22.42XA - Multiple fractures of ribs, left side, initial encounter for closed fracture
[2017-06-01 09:36] VITALS: Ht 188 cm; Wt 85.0 kg
[2017-06-01] MEDS ORDERED: OPTIRAY 320 IV PRN (09:45)
[2017-06-01 10:03] LABS: HEMATOCRIT 41.3 % (42-52); MEAN CELL VOLUME 96.3 fL (80-100); MEAN CORPUSCULAR HGB CONC 32.2 g/dl (32-36); MEAN PLATELET VOLUME 11.3 fL (7.4-10.4); PLATELET COUNT 167 K/uL (130-400); RED BLOOD COUNT 4.29 M/uL (4.7-6.1); WHITE BLOOD COUNT 16.29 K/uL (4.8-10.8)
[2017-06-01] MEDS ORDERED: GABA1CAP4 PO (10:04)
[2017-06-01] MEDS ORDERED: FLM4 PO (10:04)
[2017-06-01 10:15] LABS: ISTAT CREATININE 1.7 mg/dl (0.6-1.3); ISTAT HEMOGLOBIN 13.9 g/dl (14.0-18.0); ISTAT IONIZED CALCIUM 1.23 mmol/l (1.12-1.32)
[2017-06-01 10:24] LABS: BASO % 0.1 %; BASO ABS # 0.02 K/uL (0-0.2); COMPLETE YES; EOS % 0.2 %; IG% 0.3 %; LYMPH % 8.4 %; LYMPH ABS # 1.37 K/uL (1.2-3.4); MONO % 6.3 %; NEUT % 84.7 %
[2017-06-01 10:41] LABS: BUN/CREATININE RATIO 11.2 (10-20); CALCIUM 9.2 mg/dl (8.5-10.1); CREATININE 1.7 mg/dl (0.60-1.40)
[2017-06-01 10:55] LABS: CKMB/CK RATIO 2.7 (0-3.0)
--- NOTE | 2017-06-01 11:18 | DIAGNOSTIC IMAGING REPORT ---
CT OF THE HEAD WITHOUT CONTRAST CLINICAL HISTORY: Fall. Closed head injury. COMPARISON STUDY: Head CT November 09, 2014. TECHNIQUE: Helical axial images of the head were obtained without IV contrast. Automated exposure control was utilized for the study. A dose lowering technique was utilized adhering to the principles of ALARA. FINDINGS: No acute intracranial hemorrhage, midline shift or mass effect is present. Ventricular system is stable. The basilar cisterns are patent. There are no extra-axial collections. White matter hypodensities suggest small vessel disease. No calvarial fracture is identified. Mild mucosal thickening and tiny sphenoid sinus air-fluid level is noted. Fluid is low attenuation. IMPRESSION: 1. No acute intracranial findings. 2. No calvarial fracture. Electronically signed by: Demetrio Duron M.D. 06/01/2017 11:16 AM Dictated Date/Time: 06/01/2017 11:12 AM
--- NOTE | 2017-06-01 11:39 | DIAGNOSTIC IMAGING REPORT ---
CT OF THE CERVICAL SPINE WITHOUT CONTRAST CLINICAL HISTORY: Neck pain following fall. COMPARISON STUDY: No previous studies for comparison. TECHNIQUE: Helical axial images of the cervical spine were obtained without IV contrast. Sagittal and coronal reconstructions were viewed. A dose lowering technique was utilized adhering to the principles of ALARA. FINDINGS: The craniocervical junction is intact. There is extensive anterior osteophytosis of the cervical spine. There is moderate multilevel degenerative disc disease and severe facet arthrosis. There is an acute fracture through the anterior superior aspect of the C5 vertebral body which extends through an anterior osteophyte and the superior endplate. There are acute displaced fractures of the spinous processes of C5 and C6 as well as well as a horizontal acute fracture through the superior aspect of the C7 vertebral body. There is slight widening of the C5-C6 interspinous distance. Soft tissue gas within the lower paravertebral soft tissues is noted. This extends from the chest. A left pneumothorax better depicted on the chest CT. Was made of apparent increased attenuation within the posterior aspect of the cervical canal. This could be artifactual. IMPRESSION: 1. Multiple acute cervical spine fractures, including a fracture through the anterior superior endplate of C5, displaced fractures of the spinous processes of C5 and C6 and a horizontal fracture through the superior aspect of the C7 vertebral body. Slight widening of the C5-C6 interspinous distance. Overall, the findings suggest unstable cervical spine fractures. Discussed with Dr. Salinas time of dictation. 2. Increased attenuation within the posterior aspect of the cervical canal. This may be artifactual however an intracanalicular hematoma could appear similar. Electronically signed by: Demetrio Duron M.D. 06/01/2017 11:38 AM Dictated Date/Time: 06/01/2017 11:16 AM
--- NOTE | 2017-06-01 11:56 | DIAGNOSTIC IMAGING REPORT ---
CT OF THE CHEST WITHOUT IV CONTRAST CLINICAL HISTORY: Trauma. COMPARISON STUDY: Chest CT March 23, 2006. CT DOSE: 1548.17 mGy.cm TECHNIQUE: Axial images of the chest were obtained without IV contrast. Images were reviewed in the axial, sagittal, and coronal planes. IV contrast was not administered for this examination. A dose lowering technique was utilized adhering to the principles of ALARA. FINDINGS: A left subclavian pacer is in place. There is moderate cardiomegaly. There is no pericardial effusion. A small left pneumothorax is present. Moderate left lung airspace opacity is present. There is a small left pneumothorax. There is an acute minimally displaced fracture of the posterior left eighth rib. There are comminuted, displaced fractures of the posterior left ninth, 10th, 11th and 12th ribs. There is an acute nondisplaced fracture of the left transverse process of T9 with displaced fractures of the left transverse processes of T10, T11, T12 and L1. Fractures are markedly comminuted and displaced. There is an adjacent paravertebral hematoma which extends into the posterior mediastinum. The aorta is suboptimally assessed on this exam but grossly unremarkable. Soft tissue gas is present. IMPRESSION: 1. Small left pneumothorax. Acute fractures of the left eighth through 12th ribs. Several these fractures are comminuted and markedly displaced. Adjacent soft tissue gas. Small left hemothorax. 2. Groundglass opacities within the left lung which could reflect contusion, atelectasis or airspace disease. 3. Markedly displaced, comminuted fractures of the left transverse processes of T10, T11, T12 and L1 with a nondisplaced fracture of the left transverse process of T9. Associated hematoma involving the paraspinal musculature. Hemorrhage extends into the adjacent mediastinum. Suboptimal evaluation of the aorta on this unenhanced exam but no definite evidence for aortic injury. 4. Apparent increased attenuation within the posterior aspect of the thoracic canal. While this could be artifactual, intracanalicular hematoma could appear similar. Electronically signed by: Demetrio Duron M.D. 06/01/2017 11:54 AM Dictated Date/Time: 06/01/2017 11:38 AM
--- NOTE | 2017-06-01 12:01 | DIAGNOSTIC IMAGING REPORT ---
THORACIC SPINE WITHOUT CLINICAL HISTORY: Fall. Back pain. COMPARISON STUDY: Chest CT March 23, 2016. FINDINGS: A small left pneumothorax and small left pneumothorax and airspace opacity within the left lung are better depicted on the chest CT. There is soft tissue gas within the paraspinal musculature. There are fractures of the posterior left eighth through 12th rib. Several these fractures are markedly displaced and comminuted. There is an acute nondisplaced fracture of the left transverse process of T9. There are displaced, comminuted fractures through the left transverse processes of T10, T11, T12 and L1. These fractures are markedly displaced. There is an associated paravertebral hematoma. Extensive anterior osteophytosis of the thoracic spine is present. There is apparent increased attenuation within the posterior aspect of the canal of the thoracic spine. IMPRESSION: 1. Acute comminuted, markedly displaced fractures of the left transverse processes of T10, T11, T12 and L1 and a nondisplaced acute fracture of the left transverse process of T9. 2. Apparent increased attenuation within the posterior aspect of the thoracic canal. While this could be artifactual, an intracanalicular hematoma could have this imaging appearance. 3. Left posterior eighth through 12th rib fractures, as described above. 4. Small left pneumothorax and left hemothorax, better depicted on the chest CT. Electronically signed by: Demetrio Duron M.D. 06/01/2017 12:00 PM Dictated Date/Time: 06/01/2017 11:55 AM
[2017-06-01] MEDS ORDERED: PROTHROMBIN COMP CONC- KCENTRA 4,000 UNIT in SYRINGE 0 ML IV ONE (12:15)
[2017-06-01 12:51] VITALS: BP 163/80
[2017-06-01 13:10] VITALS: PULSE 66; O2SAT 97
--- NOTE | 2017-06-01 13:15 | DIAGNOSTIC IMAGING REPORT ---
CHEST ONE VIEW PORTABLE CLINICAL HISTORY: Fall. COMPARISON STUDY: Chest CT June 01, 2017 11:02 AM. FINDINGS: There has been interval placement of a left-sided chest tube. There is a probable small left pneumothorax. Left lower lung airspace opacity is present. A subclavian pacemaker is in place. Moderate cardiomegaly is noted. Posterior left-sided rib fractures are better depicted on the chest CT. IMPRESSION: 1. Interval placement of a left chest tube. Small residual left pneumothorax. 2. Hazy left basilar opacity. Electronically signed by: Demetrio Duron M.D. 06/01/2017 1:14 PM Dictated Date/Time: 06/01/2017 1:11 PM
== END 2017-06-01 13:10 | disposition short-term general hospital (02) ==
LOC: EDBD 09:15 → C.EDA 09:15 → C.ED 13:10
DX: S27.2XXA Traumatic hemopneumothorax, initial encounter (principal); S12.9XXA Fracture of neck, unspecified, initial encounter; S22.009A Unspecified fracture of unspecified thoracic vertebra, initial encounter for closed fracture; S22.42XA Multiple fractures of ribs, left side, initial encounter for closed fracture; W10.9XXA Fall (on) (from) unspecified stairs and steps, initial encounter; Y92.019 Unspecified place in single-family (private) house as the place of occurrence of the external cause; Z79.01 Long term (current) use of anticoagulants; I48.91 Unspecified atrial fibrillation; D64.9 Anemia, unspecified; Z95.0 Presence of cardiac pacemaker; Z87.440 Personal history of urinary (tract) infections; Z82.49 Family history of ischemic heart disease and other diseases of the circulatory system; Z79.899 Other long term (current) drug therapy